=== PATIENT | male | born 1940 | race Caucasian/White ===

== ENCOUNTER 2017-02-04 03:40 | Emergency (ER) | payer MEDICARE, OTHER | END 2017-02-04 04:29 | disposition home or self-care (01) | LOC: ER 03:40 | DX: N40.1 Benign prostatic hyperplasia with lower urinary tract symptoms (principal); R33.8 Other retention of urine; E11.9 Type 2 diabetes mellitus without complications; I10 Essential (primary) hypertension; Z90.49 Acquired absence of other specified parts of digestive tract; Z88.6 Allergy status to analgesic agent; Z88.0 Allergy status to penicillin; Z79.84 Long term (current) use of oral hypoglycemic drugs; Z79.82 Long term (current) use of aspirin; Z79.02 Long term (current) use of antithrombotics/antiplatelets; Z79.899 Other long term (current) drug therapy | CPT/HCPCS: 51702 ==